=== PATIENT | male | born 1990 | race Caucasian/White ===

== ENCOUNTER 2024-06-14 16:10 | Emergency (ER) | payer OTHER ==
[~2024-06-14] VITALS: Ht 195.6 cm; Wt 149.7 kg
[2024-06-14 16:14] VITALS: TEMP 96.8
[2024-06-14 19:17] VITALS: BP 138/79; O2SAT 99
== END 2024-06-14 19:18 | disposition home or self-care (01) ==
LOC: M ED 16:10
DX: S83.004A Unspecified dislocation of right patella, initial encounter (principal); M25.461 Effusion, right knee; W10.8XXA Fall (on) (from) other stairs and steps, initial encounter; Y92.009 Unspecified place in unspecified non-institutional (private) residence as the place of occurrence of the external cause; Y93.89 Activity, other specified; Y99.9 Unspecified external cause status

== ENCOUNTER → 2024-06-17 | Outpatient (CLI) | payer OTHER | LOC: M SOG 14:23 | PROVIDERS: ATTEND Physician Assistant | DX: M24.461 Recurrent dislocation, right knee (principal) ==